=== PATIENT | female | born 1995 | race Two or more races ===

== ENCOUNTER 2018-02-02 11:14 | Observation (INO) | payer SELFPAY ==
[~2018-02-02] VITALS: Ht 165.1 cm; Wt 72.0 kg
[2018-02-02 11:45] VITALS: BP 106/60
[2018-02-02] MEDS ORDERED: FERR-252 PO (12:42)
[2018-02-02] MEDS ORDERED: PREN-380 PO (12:42)
== END 2018-02-02 14:35 | disposition home or self-care (01) ==
LOC: MLD 11:14
PROVIDERS: ADMIT Obstetrics & Gynecology; ATTEND Obstetrics & Gynecology
DX: O62.9 Abnormality of forces of labor, unspecified (principal); Z3A.36 36 weeks gestation of pregnancy
CPT/HCPCS: G0378

== ENCOUNTER 2018-02-15 17:46 | Inpatient (IN) | payer SELFPAY ==
[~2018-02-15] VITALS: Ht 176 cm; Wt 75.7 kg
[~2018-02-15 17:46] MED LIST: FERR-252 PO; PREN-380 PO
[2018-02-15 18:08] VITALS: BP 112/58
[2018-02-15] MEDS ORDERED: MISOPROSTOL 25 MCG TAB VG ONE (18:50)
[2018-02-15] MEDS ORDERED: OXYTOCIN 20 UNITS in LACTATED RINGERS 1,000 ML IV SCH (18:50)
[2018-02-15 19:21] LABS: BASOPHILS % (AUTO) 0.2 % (0.0-2.0); EOSINOPHILS % (AUTO) 0.3 % (0.0-4.0); HEMOGLOBIN 12.5 g/dL (12.0-16.0); LYMPHOCYTES # (AUTO) 1.9 K/uL (2.5-16.5); LYMPHOCYTES % (AUTO) 24.9 % (20.5-51.1); MEAN CORPUSCULAR HEMOGLOBIN 32 pg (27-31); MEAN CORPUSCULAR HGB CONC 34 g/dL (33-37); MEAN CORPUSCULAR VOLUME 94.8 fL (80-94); MONOCYTES # (AUTO) 0.6 K/uL (0.8-1.0); MONOCYTES % (AUTO) 7.2 % (1.7-9.3); NEUTROPHILS # (AUTO) 5.2 K/uL (1.8-7.7); NEUTROPHILS % (AUTO) 67.4 % (42.2-75.2); PLATELET COUNT (AUTO) 183 K/uL (140-450); RED CELL DISTRIBUTION WIDTH 13.6 % (11.6-13.7); WHITE BLOOD COUNT (AUTO) 7.7 K/uL (4.8-10.8)
[2018-02-15 19:22] LABS: APPEARANCE,URINE CLEAR (CLEAR); BILIRUBIN,URINE NEGATIVE (NEGATIVE); BLOOD, URINE NEGATIVE (NEGATIVE); COLOR,URINE YELLOW (YELLOW); LEUKOCYTE ESTERASE ,URINE NEGATIVE (NEGATIVE); NITRITE, URINE NEGATIVE (NEGATIVE); UGLUCOSE NEGATIVE (NEGATIVE)
[2018-02-15 19:34] LABS: ANION GAP 11.3 (8-16); CARBON DIOXIDE 25.4 mmol/L (21-32); CREATININE 0.5 mg/dL (0.6-1.3); POTASSIUM 3.7 mmol/L (3.5-5.1)
[2018-02-15 19:40] LABS: ALBUMIN 2.7 g/dL (3.4-5.0); TOTAL BILIRUBIN 0.2 mg/dL (0.0-1.0)
[2018-02-15] MEDS ORDERED: MISOPROSTOL 25 MCG TAB ONE (19:56)
[2018-02-15 20:16] VITALS: BP 109/60
[2018-02-15] MEDS ORDERED: fentaNYL 0.05 MG/ML VIAL IVP PRN (20:20)
[2018-02-15] MEDS ORDERED: HYDROmorphone 1 MG/ML AMP IVP PRN (20:20)
[2018-02-16] MEDS ORDERED: OXYTOCIN 20 UNITS/LR PREMIX 1,000 ML IV ONE (00:17)
[2018-02-16] MEDS ORDERED: LACTATED RINGERS 1,000 ML IV SCH (00:55)
[2018-02-16] MEDS ORDERED: LIDOCAINE 1% 50 ML ONE (07:59)
[2018-02-16] MEDS ORDERED: OXYTOCIN 10 UNITS/ML VIAL ONE (07:59)
--- NOTE | 2018-02-16 08:44 | NUR ---
PATIENT HAS BEEN SCREENED AND CATEGORIZED LOW NUTRITION RISK. PATIENT WILL BE SEEN WITHIN 7 DAYS OF ADMISSION. 02/22/[address]
[2018-02-16] MEDS ORDERED: HYDROmorphone PFS 2 MG/ML SYR ONE (15:30)
[2018-02-16] MEDS ORDERED: METHYLERGONOVINE 0.2 MG/ML AMP ONE (15:52)
[2018-02-16] MEDS ORDERED: IBUPROFEN 800 MG TAB PO PRN (16:35)
[2018-02-16] MEDS ORDERED: BENZOCAINE/MENTHOL 20%-0.5% 60 GM CAN TP PRN (16:35)
[2018-02-16] MEDS ORDERED: METHYLERGONOVINE 0.2 MG/ML AMP IM PRN (16:35)
[2018-02-16] MEDS ORDERED: oxyCODONE/APAP 5/325 MG 1 TAB TAB PO PRN (16:35)
[2018-02-16] MEDS ORDERED: TEMAZEPAM 15 MG CAP PO PRN (16:35)
[2018-02-16] MEDS: HYDROcodone/APAP 5/325 MG 1 TAB TAB PO PRN (20:20)
[2018-02-16] MEDS ORDERED: DOCUSATE SOD/SENNA 50/8.6 MG 1 TAB PO SCH (21:00)
[2018-02-17] MEDS: HYDROcodone/APAP 5/325 MG 1 TAB TAB PO PRN ×3 (03:18→17:53)
[2018-02-17 07:08] LABS: HEMATOCRIT 35.8 % (36-48); HEMOGLOBIN 12.3 g/dL (12.0-16.0)
== END 2018-02-17 19:10 | disposition home or self-care (01) | DRG 807 ==
LOC: MLD 17:46 → MFCC 02-16 19:30
PROVIDERS: ADMIT Obstetrics & Gynecology; ATTEND Obstetrics & Gynecology
PROC: 10E0XZZ Delivery of Products of Conception, External Approach (ICD-10-PCS; principal; 2018-02-16)
PROC: 10907ZC Drainage of Amniotic Fluid, Therapeutic from Products of Conception, Via Natural or Artificial Opening (ICD-10-PCS; 2018-02-16)
PROC: 0HQ9XZZ Repair Perineum Skin, External Approach (ICD-10-PCS; 2018-02-16)
PROC: 3E0P7VZ Introduction of Hormone into Female Reproductive, Via Natural or Artificial Opening (ICD-10-PCS; 2018-02-16)
DX: O62.3 Precipitate labor (principal); Z37.0 Single live birth; O69.81X0 Labor and delivery complicated by cord around neck, without compression, not applicable or unspecified; Z3A.37 37 weeks gestation of pregnancy; O70.0 First degree perineal laceration during delivery; Z28.21 Immunization not carried out because of patient refusal
CPT/HCPCS: 36415; 59200; 59409; 80053; 81003; 85018; 85025; 86592; 86886; 86900; 86901; J1170; J2001; J2210; J2590; J7120